=== PATIENT | female | born 1990 | race Caucasian/White ===

== ENCOUNTER 2019-08-20 03:30 | Emergency (ER) | payer SELFPAY ==
[~2019-08-20] VITALS: Ht 157.5 cm; Wt 88.5 kg
[2019-08-20 03:34] VITALS: Ht 157.5 cm; Wt 88.5 kg
[2019-08-20 05:57] VITALS: BP 120/76
== END 2019-08-20 05:57 | disposition home or self-care (01) ==
LOC: ED 03:30
DX: H10.31 Unspecified acute conjunctivitis, right eye (principal)